=== PATIENT | female | born 1980 | race Hispanic/Latino ===

== ENCOUNTER 2018-08-16 16:47 | Emergency (ER) | payer SELFPAY ==
[~2018-08-16] VITALS: Ht 157.5 cm; Wt 90.0 kg
[~2018-08-16 16:47] MED LIST: CIPRO500 MG OR; DICLOFENAC50 MG PO; HYDROCODONE/ACE1 TAB PO; LIORESAL10 MG/TAB PO; LISINOP/HCTZ1 TAB PO; NO MEDS; PYRIDIUM200 MG OR; TIZANIDINE4 MG PO
[2018-08-16] MEDS ORDERED: VOLTAREN1%GEL TOP (17:09)
[2018-08-16 17:58] VITALS: BP 149/74
== END 2018-08-16 17:58 | disposition home or self-care (01) | DRG 563 ==
LOC: ED 16:47
DX: S39.012A Strain of muscle, fascia and tendon of lower back, initial encounter (principal); X58.XXXA Exposure to other specified factors, initial encounter